=== PATIENT | male | born 1990 | race Caucasian/White ===

== ENCOUNTER 2021-05-27 10:48 | Emergency (ER) | payer OTHER ==
[~2021-05-27] VITALS: Ht 177.8 cm; Wt 135.0 kg
[2021-05-27 11:30] VITALS: BP 147/90
[2021-05-27] MEDS ORDERED: KETOROLAC 60 MG/2 ML VIAL. IM ONE (13:00)
[2021-05-27] MEDS ORDERED: ORPHENADRINE CITRATE 60 MG/2 ML VIAL. IM ONE (13:00)
--- NOTE | 2021-05-27 13:17 | PHYS DOC ---
Past History Past Surgical History: No Surgical History (SANA MATIAS APRN) General Adult EDM: Chief Complaint: BACK PAIN - NO INJURY HPI: HPI: Patient is a 38-year-old male who presents to the emergency department for right lower back pain. He reports that occasionally the pain will radiate into his right testicle and down his leg. Patient denies any injury or heavy lifting. H e reports that the pain started 1 week ago. He has a history of chronic back pain. He rates his pain 7 out of 10. Is worse with movement. Patient denies any abdominal pain, nausea, vomiting, diarrhea, urinary symptoms, urethral discharge, testicular pain or swelling, saddle anesthesias, loss of bowel or bladder. (SANA MATIAS APRN) Review of Systems: Review of Systems: GI: See HPI : See HPI Musculoskeletal: See HPI Neurologic: See HPI (SANA MATIAS APRN) Current Medications: Current Meds: Current Medications Medications (Trade) Dose Ordered Sig/Ramy Start Time Stop Time Status Last Admin Dose Admin Ketorolac Tromethamine (Toradol Im) 60 mg 1X ONCE 05/27/21 13:00 05/27/21 13:02 DC Orphenadrine Citrate (Norflex) 60 mg 1X ONCE 05/27/21 13:00 05/27/21 13:02 DC (SANA MATIAS APRN) Allergies: Allergies: Allergies Coded Allergies Type Severity Reaction Last Updated Verified No Known Drug Allergies 05/27/21 No (SANA MATIAS APRN) Physical Exam: PE: Constitutional: Well developed, well nourished, no acute distress, non-toxic appearance. [] HENT: Normocephalic, atraumatic, bilateral external ears normal, oropharynx moist, no oral exudates, nose normal. [] Eyes: PERRL, EOMI, conjunctiva normal, no discharge. [] Neck: Normal range of motion, no tenderness, supple, no stridor. [] Cardiovascular: Normal peripheral perfusion Lungs & Thorax: No work of breathing, no tachypnea Abdomen: Obese, soft, no tenderness, no masses, no pulsatile masses. [] Skin: Warm, dry, no erythema, no rash. [] Back: No tenderness, no CVA tenderness. Positive right straight leg raise [] Extremities: No tenderness, no cyanosis, no clubbing, ROM intact, no edema. [] Neurologic: Alert and oriented X 3, normal motor function, normal sensory function, no focal deficits noted. [] Psychologic: Affect normal, judgement normal, mood normal. [] (SANA MATIAS APRN) Current Patient Data: Labs: Laboratory Tests Test 05/27/21 12:35 Urine Collection Type Unknown Urine Color Yellow Urine Clarity Clear Urine pH 5.5 Urine Specific [place] >=1.030 Urine Protein Neg Urine Glucose (UA) Neg mg/dL Urine Ketones (Stick) Neg mg/dL Urine Blood Trace Urine Nitrite Neg Urine Bilirubin Neg Urine Urobilinogen Dipstick 0.2 mg/dL Urine Leukocyte Esterase Trace Urine RBC 3-5 /HPF Urine WBC 11-20 /HPF Urine Squamous Epithelial Cells Few /LPF Urine Bacteria 0 /HPF Urine Mucus Mod /LPF Current Medications Medications (Trade) Dose Ordered Sig/Ramy Route PRN Reason Start Time Stop Time Status Last Admin Dose Admin Ketorolac Tromethamine (Toradol Im) 60 mg 1X ONCE IM 05/27/21 13:00 05/27/21 13:02 DC 05/27/21 13:40 Orphenadrine Citrate (Norflex) 60 mg 1X ONCE IM 05/27/21 13:00 05/27/21 13:02 DC 05/27/21 13:40 Vital Signs: Vital Signs Date Time Temp Pulse Resp B/P (MAP) Pulse Ox O2 Delivery O2 Flow Rate FiO2 05/27/21 11:30 97.9 87 147/90 (109) 99 Room Air 05/27/21 11:30 16 (SANA MATIAS APRN) EKG: EKG: [] (SANA MATIAS APRN) Radiology/Procedures: Radiology/Procedures: []PROCEDURE: CT ABDOMEN PELVIS WO CONTRAST INDICATION: Reason: r/o kidney stone / Spl. Instructions: / History: COMPARISON: None. TECHNIQUE: Axial CT images were obtained through the abdomen and pelvis without intravenous contrast. One or more of the following individualized dose reduction techniques were utilized for this examination: 1. Automated exposure control; 2. Adjustment of the mA and/or kV according to patient size; 3. Use of iterative reconstruction technique. FINDINGS: Small fat-containing inguinal hernias. Vascular: No abdominal aortic aneurysm. Hepatobiliary: No intrahepatic biliary duct dilation. Pancreas: No peripancreatic edema. Spleen: Spleen unremarkable. Renal/Bladder: Urinary bladder is partially distended with mild prominence the wall. No hydronephrosis. Gastrointestinal: No periappendiceal inflammatory changes. No dilated loops of bowel to suggest obstruction. Degenerative changes throughout the spine with disc osteophyte complexes and facet hypertrophy with multilevel central canal and neural foraminal stenosis. There is some wedging of the T12 vertebral body. IMPRESSION: * No hydronephrosis or radiopaque obstructive ureter stone. * Degenerative changes the spine. Electronically signed by: Bernardo Prather MD (05/27/2021 2:37 PM) [id number] DICTATED AND SIGNED BY: BERNARDO PRATHER MD DATE: 05/27/21 142 CC: SANA MATIAS APRN; PCP,NO ~MTH0 0 (SANA MATIAS APRN) Heart Score: C/O Chest Pain: N/A Risk Factors: Risk Factors: DM, Current or recent (<one month) smoker, HTN, HLP, family history of CAD, obesity. Risk Scores: Score 0 - 3: 2.5% MACE over next 6 weeks - Discharge Home Score 4 - 6: 20.3% MACE over next 6 weeks - Admit for Clinical Observation Score 7 - 10: 72.7% MACE over next 6 weeks - Early Invasive Strategies (SANA MATIAS APRN) Course & Med Decision Making: Course & Med Decision Making Pertinent Labs and Imaging studies reviewed. (See chart for details) [] Patient resents the emergency department for right lower back pain that radiates into his groin into his testicles and down his leg. Imaging performed of patient's lumbar spine that showed no acute findings. Urinalysis was performed that showed trace blood, 11-20 white blood cells, trace leuks, patient will be treated with an antibiotic.. Patient was treated with anti- inflammatory and muscle relaxer. Patient denies any loss of bowel or bladder or saddle anesthesias. He denies any testicular pain/swelling/urethral discharge. CT abdomen and pelvis was performed to rule out stones as there was hematuria noted, this was negative for any acute findings. Patient advised to take anti-inflammatory medications, he will be discharged home with a muscle relaxer and an antibiotic to treat his urinary tract infection. Advised to increase fluids and avoid bladder irritants. I discussed with patient all findings and diagnostic testing as well as the need to follow-up with PCP for further evaluation and treatment or return to the ER if any new or worsening symptoms. Strict return precautions were also discussed at length. Patient voiced understanding and agreement with the plan. Patient is hemodynamically stable at the time of disposition. (SANA MATIAS APRN) Dragon Disclaimer: Dragon Disclaimer: This electronic medical record was generated, in whole or in part, using a voice recognition dictation system. (SANA MATIAS APRN) Attending Co-Sign The patient was seen and interviewed as well as examined at the bedside. The chart was reviewed. The case was discussed. Agree with the plan of care. (SHERICE CRABTREE DO) Departure Departure: Impression: Primary Impression: Back pain Qualified Codes: M54.41 - Lumbago with sciatica, right side Additional Impression: Pyelonephritis Disposition: HOME / SELF CARE / HOMELESS Condition: GOOD Referrals: PCP,NO (PCP) Patient Instructions: Back Pain, Adult, Urinary Tract Infection Additional Instructions: You are seen in the emergency department for back pain. Your urinalysis does show urinary tract infection which will be treated with an antibiotic. Please make sure that you increase your fluids and avoid any bladder irritants like caffeine, sugary beverages or alcohol. Your back pain may be musculoskeletal related. Please take anti-inflammatory medications like ibuprofen or naproxen at home. You are being discharged home with a muscle relaxer, use this as directed. This medication may cause sedation so do not take need to be alert, driving a vehicle or with alcohol. Follow-up with your primary care provider tomorrow regarding your ER visit. Please return to the emergency department if you develop worsening of your pain, intractable nausea vomiting, high fevers refractory to treatment, blood in your urine or any new or worsening concerns. Scripts Sulfamethoxazole/Trimethoprim (BACTRIM DS TABLET) 1 Each Tablet 1 TAB PO BID for infection for 14 Days, #28 TAB 0 Refills Prov: SANA MATIAS APRN 05/27/21 Cyclobenzaprine Hcl (CYCLOBENZAPRINE HCL) 5 Mg Tablet 1 TAB PO TID for muscle spasm for 5 Days, #15 TAB 0 Refills Prov: SANA MATIAS APRN 05/27/21 SANA MATIAS APRN May 27, 2021 13:17 SHERICE CRABTREE DO May 28, 2021 06:47
[2021-05-27 13:22] LABS: BACTERIA,URINE 0 /HPF (0-FEW); BILIRUBIN,URINE NEG (NEG); CLARITY,URINE CLEAR; COLOR,URINE YELLOW; GLUCOSE,URINE NEG (NEG); NITRITE,URINE NEG (NEG); SQUAMOUS EPITHELIAL CELL,UR FEW /LPF; UROBILINOGEN,URINE 0.2 mg/dL (0.2 mg/dL)
--- NOTE | 2021-05-27 13:49 | RAD ---
XR LUMBAR SPINE 2-3V History: Low back pain Comparison: None. Technique: 3 views of the lumbar spine. Findings: There are 5 non-rib bearing lumbar vertebral segments. There is no evidence of fracture. No destructive osseous lesions. Straightening of the normal lumbar lordosis. No spondylolisthesis. No significant facet disease. Mild disc space narrowing L4-L5 and L5-S1. Sacroiliac joints are unremarkable. Soft tissues are unremarkable. IMPRESSION: 1. Mild lumbar spondylosis. No acute findings. Electronically signed by: Cameron Doyle MD (05/27/2021 1:47 PM) [facility]
[2021-05-27] MEDS ORDERED: CYCL5TAB PO (13:53)
[2021-05-27] MEDS ORDERED: CEPH500T PO (13:53)
--- NOTE | 2021-05-27 14:39 | RAD ---
INDICATION: Reason: r/o kidney stone / Spl. Instructions: / History: COMPARISON: None. TECHNIQUE: Axial CT images were obtained through the abdomen and pelvis without intravenous contrast. One or more of the following individualized dose reduction techniques were utilized for this examinat ion: 1. Automated exposure control; 2. Adjustment of the mA and/or kV according to patient size; 3 . Use of iterative reconstruction technique. FINDINGS: Small fat-containing inguinal hernias. Vascular: No abdominal aortic aneurysm. Hepatobiliary: No intrahepatic biliary duct dilation. Pancreas: No peripancreatic edema. Spleen: Spleen unremarkable. Renal/Bladder: Urinary bladder is partially distended with mild prominence the wall. No hydronephrosi s. Gastrointestinal: No periappendiceal inflammatory changes. No dilated loops of bowel to suggest obstr uction. Degenerative changes throughout the spine with disc osteophyte complexes and facet hypertrophy with m ultilevel central canal and neural foraminal stenosis. There is some wedging of the T12 vertebral bod y. IMPRESSION: * No hydronephrosis or radiopaque obstructive ureter stone. * Degenerative changes the spine. Electronically signed by: Michael Prather MD (05/27/2021 2:37 PM) [id number]
[2021-05-27] MEDS ORDERED: SULF1TAB24 PO (14:49)
== END 2021-05-27 14:56 | disposition home or self-care (01) ==
LOC: ER 10:48
DX: N12 Tubulo-interstitial nephritis, not specified as acute or chronic (principal); M54.41 Lumbago with sciatica, right side
CPT/HCPCS: 72100; 74176; 81001; 87086; 96372; 99285; J1885; J2360